=== PATIENT | male | born 1965 | race Caucasian/White ===

== ENCOUNTER 2017-03-29 19:38 | Emergency (ER) | payer BC ==
[2017-03-29 19:58] VITALS: RESP 16; TEMP 98.8; O2SAT 94
--- NOTE | 2017-03-29 20:07 | EDPHY ---
H & P Stated Complaint: pt has some type of bite to L ankle, sore spots on calf, bmc- poss dvt Time Seen by Provider: 03/29/17 20:06 HPI/ROS: CHIEF COMPLAINT: Ankle sores. HISTORY OF PRESENT ILLNESS: The patient is a 51-year-old male who presents with small sores on the lateral aspect of his left ankle that began a day ago and increased in number today. The spots are sore to the touch and he did notice some pain with walking today. He is also complaining of left inner thigh soreness. He admits diarrhea. He did recently return from [facility]. He visited [facility] [place] and had blood work drawn and was sent to the ED because of a positive d- dimer. No fever, chills, chest pain, shortness of breath, palpitations, vomiting , urinary complaints, headache, lightheadedness. REVIEW OF SYSTEMS: Aside from elements discussed in the HPI, a comprehensive 10-point review of systems was reviewed and is negative. PAST MEDICAL HISTORY: Depression, asthma, right hand ORIF. SOCIAL HISTORY: Nonsmoker. VITAL SIGNS: Reviewed by me GENERAL: Well-developed, well-nourished, resting comfortably in no respiratory distress. HEENT: Atraumatic. Eyes: No icterus, no injection. Mouth: moist mucous membranes. No erythema or lesions. Neck: supple with no adenopathy. EXTREMITIES: No trauma. No edema. Range of motion is normal throughout. 1.5cm erythematous lesion over lateral malleolus. Scattered areas of erythema just superior to this lesion. Small areas of erythema to inner thigh. No abscess. NEURO: Alert and oriented, grossly nonfocal. SKIN: Warm and dry, no rash. PSYCHIATRIC: Normal mentation, no agitation. Portions of this note were transcribed by a medical instrument technician. I personally performed a history, physical exam, medical decision making, and confirmed accuracy of information the transcribed note. Source: Patient Exam Limitations: No limitations - Personal History Current Tetanus Diphtheria and Acellular Pertussis (TDAP): Yes - Medical/Surgical History Hx Asthma: No Hx Chronic Respiratory Disease: No Hx Diabetes: No Hx Cardiac Disease: No Hx Renal Disease: No Hx Cirrhosis: No Hx Alcoholism: No Hx HIV/AIDS: No Hx Splenectomy or Spleen Trauma: No Other PMH: orif R hand, depression, exercise induced asthma - Social History Smoking Status: Never smoked Constitutional: Initial Vital Signs Temperature (C) 37.1 C 03/29/17 19:54 Heart Rate 83 03/29/17 19:54 Respiratory Rate 16 03/29/17 19:54 Blood Pressure 116/64 03/29/17 19:54 O2 Sat (%) 94 03/29/17 19:54 O2 Delivery Mode Room Air Allergies/Adverse Reactions: No Known Allergies Allergy (Unverified 03/29/17 19:58) Home Medications: Medication Instructions Recorded Albuterol Hfa Anes Only 03/29/17 Cephalexin [Keflex (RX)] 500 mg PO QID 7 Days 03/29/17 Doxycycline Hyclate 03/29/17 Sertraline HCl 03/29/17 Medical Decision Making ED Course/Re-evaluation: This is a 51-year-old male who recently returned from [facility]. After returning he noticed small lesions on his left ankle and thigh and visited [facility] [place]. They performed blood work and noted a positive d-dimer so he was sent here for ultrasound imaging. On my examination the patient has scattered erythematous lesions on his calf as well as faint erythema along the medial upper thigh. He does have 1 swollen lymph node in the groin. He does not appear to be toxic. He has had no fevers. Ultrasound demonstrates no DVT or superficial clot. Patient will be placed on Keflex in addition to the doxycycline which he had been previously prescribed. He was reassured regarding the findings of no DVT. Patient will be discharged in good condition. Differential Diagnosis: Differential diagnosis for the patient's primary complaint was considered including but not limited to cellulitis, superficial thrombophlebitis, lymphangitic infection, DVT, chronic venous stasis. - Data Points Medications Given: Discontinued Medications Cephalexin (Keflex 500 Mg Prepack#4) 1 btl TAKEHOME EDNOW ONE PRN Reason: Protocol Stop: 03/29/17 21:50 Last Admin: 03/29/17 22:17 Dose: 1 btl Departure - Departure Disposition: Home, Routine, Self-Care Clinical Impression: Cellulitis of left leg, Lymphadenopathy Condition: Good Instructions: Cellulitis (ED), Lymphadenopathy (ED) Additional Instructions: Begin taking Keflex in addition to doxycycline. Keep leg elevated as much as possible if you develops significant throbbing discomfort. Consider taking 81 mg of aspirin daily for prophylaxis for DVTs, if you are [place] a prolonged, [place] flight. Referrals: Harley Duval MD [Primary Care Provider] - As per Instructions Prescriptions: Cephalexin [Keflex (RX)] 500 mg PO QID 7 Days Report Scribed for: Ingris Masters Report Scribed by: Reid Nelson Date of Report: 03/29/17 Time of Report: 20:17
[2017-03-29] MEDS ORDERED: CEPHALEXIN 500MG PREPACK#4 BTL TAKEHOME ONE (21:49)
[2017-03-29 22:08] VITALS: BP 99/71; PULSE 71
== END 2017-03-29 22:08 | disposition home or self-care (01) ==
DX: L03.116 Cellulitis of left lower limb (principal); R59.1 Generalized enlarged lymph nodes; J45.909 Unspecified asthma, uncomplicated